=== PATIENT | female | born 2000 | race Caucasian/White ===

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

== ENCOUNTER → 2021-04-16 12:07 | Outpatient (CLI) | payer OTHER, MEDICAID, SELFPAY ==
[2021-04-16 13:44] LABS: COVID19 -Nasal RAPID Negative (Negative)
== END ==
PROVIDERS: PCP Family Medicine; Visit Provider Nurse Practitioner
DX: J02.9 Acute pharyngitis, unspecified (principal); R05 Cough; R52 Pain, unspecified; Z20.822 Contact with and (suspected) exposure to COVID-19
CPT/HCPCS: 87635

== ENCOUNTER → 2021-05-26 13:50 | Outpatient (CLI) | payer OTHER, MEDICAID, SELFPAY ==
--- NOTE | 2021-05-26 13:51 | DI.US.S_ITS ---
PROCEDURE: US OB >= 14 WEEKS FETUS INDICATIONS: DATING. ANATOMY. OUTSIDE/PRIOR DATING DATA: Last menstrual period (LMP): Unknown . LMP-based estimated date of delivery (PAM): Unknown . First dating scan (date and location): 05/26/21 . Estimated date of delivery (PAM) from first dating scan: 10/14/21 . TECHNIQUE: Real-time scanning was performed of the fetus, with image documentation and biometric measurements. Endovaginal scanning: Not performed COMPARISON: [facility], , OB >= 14 WEEKS FETUS, 09/10/2019, 8:40. FINDINGS: General: A single living intrauterine gestation is present. Presentation: Variable. Placenta: Placental position is anterior , without previa. Amniotic fluid index: 15.2 cm, normal range is 5-24 cm. heart rate: 130 beats per minute. Maternal cervical canal: 3.6 cm long. Normal lower limit is 2.5 cm. biometrics: Biparietal diameter: 4.6 cm, 20 weeks 0 days Head circumference: 0.8 cm, 19 weeks 3 days Abdominal circumference: 15.0 cm, 20 weeks 2 days Femur length: 3.2 cm, 19 weeks 6 days Estimated gestational age from initial scan: not applicable. Composite gestational age from present scan: 19 weeks 6 days Estimated weight and percentile: 325 g. Measurement variability for biometric dating: +/- 7 days from 14 weeks to 15 weeks 6 days gestation, +/- 10 days from 16 weeks to 21 weeks 6 days gestation, +/- 2 weeks from 22 weeks to 27 weeks 6 days gestation, +/- 3 weeks for 28 weeks gestation or later. weight reference: 4500 g or EFW >90/95% is considered macrosomia or large for gestational age. EFW <10% is small for gestational age. EFW 5% or less is considered intra-uterine growth restriction. Anatomic survey: Neuro: Ventricles are non-dilated at less than 10 mm. Cisterna magna is normal at 3-11 mm. Cerebellum is normal in size and morphology. Nuchal skin fold: Normal at less than 6 mm between 14-21 weeks gestational age. Face: Nose and lips, facial profile are normal. Spine: No evidence for spina bifida. Heart: 4-chambered heart is present, with normal ventricular outflow tracts. Diaphragm: Diaphragm is intact. Stomach: Left-sided stomach is present. Kidneys: No hydronephrosis. Normal is less than 5 mm in 2nd trimester, less than 7 mm in 3rd trimester. Cord: 3-vessel cord has orthotopic insertion. Bladder: Normal in size. Extremities: All 4 extremities identified. IMPRESSION: Single living intrauterine fetus in variable presentation. Normal anatomic survey Growth assessment precluded by lack of known LMP or 1st trimester dating ultrasound. As clinically warranted, a limited growth ultrasound study could be performed in 3-4 weeks for further evaluation. Dictated by: Amador Zaragoza M.D. on 05/26/2021 at 16:28 Approved by: Amador Zaragoza M.D. on 05/26/2021 at 16:31
[2021-05-26 15:22] LABS: Add Manual Diff / Slide Review NO; Basophils Absolute Auto 100 /uL (0-100); Basophils Percent Auto 0.6 % (0-2); Eosinophils Absolute Auto 200 /uL (0-450); Eosinophils Percent Auto 1.5 % (2-4); Hematocrit 37.4 % (36-46); Hemoglobin 12.9 g/dL (12.0-16.0); Lymphocytes Absolute Auto 2400 /uL (1100-4500); Lymphocytes Percent Auto 21.7 % (25-40); Mean Corpuscular HGB Conc 34.4 % (30-36); Mean Corpuscular Hemoglobin 31.9 PG (26-34); Mean Corpuscular Volume 92.7 fL (80-100); Monocytes Absolute Auto 500 /uL (0-900); Monocytes Percent Auto 4.4 % (3-14); Neutrophils Absolute Auto 8000 /uL (1500-7000); Neutrophils Percent Auto 71.8 % (50-75); Platelet Count 264 X10^3/uL (150-400); Red Blood Cell Count 4.03 X10^6/uL (4.0-5.2); Red Cell Distribution Width 13.3 % (11.6-14.8); White Blood Cell Count 11.1 X10^3/uL (4.5-11.0)
[2021-05-26 15:25] LABS: Appearance Urine UA CLEAR; Bilirubin Urine UA NEGATIVE (NEGATIVE); Color Urine UA YELLOW; Glucose Urine UA NEGATIVE (Negative); Ketones Urine UA NEGATIVE (NEGATIVE); Leukocyte Esterase Urine UA NEGATIVE (NEGATIVE); Nitrite Urine UA NEGATIVE (Negative); Occult Blood Urine UA NEGATIVE (Negative); Protein Urine UA NEGATIVE (Negative); Specific Gravity Urine UA 1.015 (1.000-1.035); Urobilinogen Urine UA 0.2 E.U./dL (0.2)
[2021-05-27 06:40] LABS: RPR Screen Non Reactive (Non Reactive)
[2021-05-27 08:10] LABS: Varicella IgG Antibody <135 index (Immune >165)
[2021-05-27 16:28] LABS: Hepatitis B Surface Antigen NEGATIVE s/c (NEGATIVE)
[2021-05-27 16:48] LABS: HIV 1 & 2 Ab/Ag 4th Gen Combo NEGATIVE (NEGATIVE); Hep C Virus Ab w/Reflex Quant NEGATIVE s/c (NEGATIVE)
[2021-06-05 13:42] LABS: Rubella Antibody IgG 12.4 IU/mL (>15)
== END ==
PROVIDERS: PCP Family Medicine; Referring Provider Obstetrics & Gynecology; Visit Provider Obstetrics & Gynecology
DX: Z34.82 Encounter for supervision of other normal pregnancy, second trimester (principal); Z3A.19 19 weeks gestation of pregnancy
CPT/HCPCS: 36415; 76811; 80055; 81003; 82105; 82677; 84702; 86336; 86787; 86803; 86850; 86900; 86901; 87086; 87389

== ENCOUNTER → 2021-05-26 16:22 | Outpatient (CLI) | payer OTHER, MEDICAID, SELFPAY ==
[2021-05-28 20:38] LABS: AFP, Serum 46.2 ng/mL (.); Calc Gestational Age Ultrasound (.); Estriol, Free 2.75 ng/mL (.); Inhibin A, Dimeric 235.65 pg/mL (.); Maternal Ethnicity Caucasian (.); Maternal Weight 134 lbs (.); Number of Fetuses No (.); OSBR Risk 1 IN 10000 (.); Results Report (.); Test Results *Screen Negative* (.); hCG, MoM 0.55 (.); hCG, Serum 14951 mIU/mL (.)
== END ==
PROVIDERS: PCP Family Medicine; Referring Provider Obstetrics & Gynecology; Visit Provider Obstetrics & Gynecology
DX: Z34.82 Encounter for supervision of other normal pregnancy, second trimester (principal); Z3A.19 19 weeks gestation of pregnancy
CPT/HCPCS: 82105; 82677; 84702; 86336

== ENCOUNTER 2021-06-30 21:24 | Emergency (ER) | payer OTHER, MEDICAID, SELFPAY ==
[2021-06-30 21:26] VITALS: BP 120/65; PULSE 87; RESP 15; TEMP 36.7; O2SAT 100
--- NOTE | 2021-06-30 23:02 | ED_ITS ---
HPI - General Adult General Chief complaint: Upper Respiratory Symptoms Stated complaint: sore throat Time Seen by Provider: 06/30/21 21:50 Source: patient Mode of arrival: Ambulatory History of Present Illness HPI narrative: Patient is a 20-year-old female. She is here for evaluation approximately 24 hours of a sore throat. She has not tried anything for symptoms prior to arrival. She was recently diagnosed with strep throat and finished a course of antibiotics. This was done several months ago at an outside facility. No rashes. No fevers. No cough. Related Data Home Medications Medication Instructions Recorded Confirmed prenat.vits,alverto,[id number]-[id number]-[id number] 1 tab PO DAILY 06/25/19 05/25/21 albuterol sulfate 90 mcg/actuation 0 INH SEE INSTRUCTIONS PRN 12/30/19 01/27/20 aerosol inhaler (Proventil HFA) Previous Rx's Medication Instructions Recorded albuterol sulfate 90 mcg/actuation 1 puff INH PRN PRN #8 gm 08/17/16 aerosol inhaler (Ventolin HFA) Allergies Allergy/AdvReac Type Severity Reaction Status Date / Time No Known Drug Allergies Allergy Verified 05/25/21 11:33 Review of Systems Constitutional Constitutional: Denies fever(s) and Denies headache(s) ENT Ears, Nose, Mouth, and Throat: Reports system reviewed and no additional complaints, except as documented and Denies headache(s) Cardiovascular Cardiovascular: Denies chest pain Respiratory Respiratory: Reports system reviewed and no additional complaints, except as documented Gastrointestinal Gastrointestinal: Reports system reviewed and no additional complaints, except as documented Integumentary/Breasts Skin/Breast: Reports system reviewed and no additional complaints, except as documented Neurologic Neurologic: Denies headache(s) Hematologic/Lymphatic On Anticoagulants: No Patient History Medical History Anxiety (~2015) Depression (~2013) Eczema (~2001) H/O being hospitalized Intrauterine in teenager (~2018) Pharyngitis examination following vaginal delivery (~2019) Surgical History (Updated 05/25/21 @ 11:51 by Kavitha Fletcher RN) History of removal of skin mole (~2011) Family History (Updated 05/25/21 @ 11:59 by Kavitha Fletcher RN) Grandmother Hypertension Grandfather Lung cancer Smoker Family/Other Breast cancer Brother OCD (obsessive compulsive disorder) Learning disability Mother Depression Father Depression Grandmother No problems noted. Grandfather No problems noted. Social History marital status: unmarried,living together number of children: 1 household members: family lives independently: Yes caregiver/support person: No housing: apartment pets and animals: Yes (Dogs and Cats : aware/safe. ) education level: high school occupational status: [facility] ([employer] current occupational exposures/hazards: No special nathalia needs: No other: Patient is planning on graduating and taking a gap year. seatbelt use: always do you feel safe at home: Yes Smoking Status: Never smoker second hand exposure: No alcohol intake: former (Rare: some on occasion before diagnosis) substance use type: marijuana (Smokes MJ for nausea: states she uses some to ease nausea symptoms : discussed/aware. ) during the past year weight has: remained stable well-balanced diet: daily or most days daily servings fruits/ve or more times/day (5-9 servings/day: lots of fruit.) caffeine: No Type(s) of exercise: walking (Dog park & lots of walks with son.) frequency: 3-4 times per week duration: 30-45 minutes/day Smoking Status: Never smoker alcohol intake frequency: holidays/special occasions only Substance Use Type: does not use Exam Initial Vital Signs Initial Vital Signs: Vital Signs Temperature 98.0 F 06/30/21 21:26 Pulse Rate 87 06/30/21 21:26 Respiratory Rate 15 06/30/21 21:26 Blood Pressure 120/65 06/30/21 21:26 Pulse Oximetry 100 06/30/21 21:26 Const General: cooperative and healthy appearing [facility] Head: normal to inspection Mouth: oral mucosae normal Teeth and gingiva: dentition normal Throat: posterior oropharynx normal Resp Effort & Inspection: normal respiratory effort Skin General: no rashes or lesions noted Neuro General: patient alert, patient awake and moves all extremities Extrem General: normal to inspection Psych Appearance: grossly normal Course Orders Ordered: Discontinued Medications Dexamethasone (Dexamethasone 4 Mg Tablet) 12 mg PO NOW ONE Stop: 06/30/21 23:04 Last Admin: 06/30/21 23:10 Dose: 12 mg Documented by: RYANIKE Vital Signs Vital signs: Vital Signs - 8 hr 06/30/21 21:26 Temperature 98.0 F Pulse Rate 87 Respiratory Rate 15 Blood Pressure 120/65 Pulse Oximetry 100 Medical Decision Making Lab Data Labs: Point of Care Testing Rapid Strep A Negative Point of care testing: Point of Care Testing Rapid Strep A Negative MDM Narrative Medical decision making narrative: Patient's rapid strep was negative. She does have a benign exam. No indication for antibiotics. Will provide 1 dose of a steroid to help with her symptoms. She was given return precautions and follow-up instructions. She expressed understanding and agreement. Discharge Plan Departure Patient Disposition: Home Clinical Impression: Pharyngitis Instructions: Sore Throat Activity Restrictions/Additional Instructions: Your rapid strep test today was negative. You were given a dose of steroids which should help with your symptoms. Continue to stay hydrated. Contact your primary doctor for a follow-up. Return to the emergency department for any new or worsening symptoms Prescriptions: No Action albuterol sulfate [Ventolin HFA] 90 MCG/PUFF HFA aerosol inhaler 1 puff INH PRN PRNQty: 8 0RF prenat.vits,alverto,erx-iqod-nknqf Tablet 1 tab PO DAILY 0RF albuterol sulfate [Proventil HFA] 90 MCG/PUFF HFA aerosol inhaler 0 INH SEE INSTRUCTIONS PRN (Reason: Shortness Of Breath Or Wheezing) 0RF Referrals: Lorie Wong DO [Primary Care Provider] -
[2021-06-30] MEDS: dexAMETHasone 4 MG TABLET 12 MG PO (23:10)
== END 2021-06-30 23:12 | disposition home or self-care (01) ==
PROVIDERS: Emergency Provider Emergency Medicine; PCP Family Medicine
DX: J02.9 Acute pharyngitis, unspecified (principal)
CPT/HCPCS: 87880; 99283

== ENCOUNTER → 2021-08-02 15:51 | Outpatient (CLI) | payer OTHER, MEDICAID, SELFPAY ==
[2021-08-02 17:06] LABS: COVID19 -Nasal RAPID Negative (Negative)
== END ==
PROVIDERS: PCP Family Medicine; Referring Provider Nurse Practitioner Family; Visit Provider Nurse Practitioner Family
DX: Z20.822 Contact with and (suspected) exposure to COVID-19 (principal)
CPT/HCPCS: 87635

== ENCOUNTER 2021-09-12 00:24 | Outpatient (CLI) | payer OTHER, MEDICAID, SELFPAY ==
[2021-09-12] MEDS: ACETAMINOPHEN 325 MG TABLET 650 MG PO (01:40)
--- NOTE | 2021-09-12 10:50 | P.TNLD_ITS ---
Visit Information Visit Information Date of evaluation: 09/12/21 Primary OB Provider: Christopher Willard On-call OB Provider: Jessica Alfredo Reason for Evaluation: Yes other Comments/Additional reasons for admission: Pelvic and back pain Vital Signs Vital Signs: blood pressure 122/65, pulse 66, temperature 97.3? [facility] Medical History Anxiety (~2015) Depression (~2013) Eczema (~2001) H/O being hospitalized Intrauterine in teenager (~2018) Pharyngitis examination following vaginal delivery (~2019) Surgical History (Updated 05/25/21 @ 11:51 by Kavitha Fletcher RN) History of removal of skin mole (~2011) Family History (Updated 05/25/21 @ 11:59 by Kavitha Fletcher RN) Grandmother Hypertension Grandfather Lung cancer Smoker Family/Other Breast cancer Brother OCD (obsessive compulsive disorder) Learning disability Mother Depression Father Depression Grandmother No problems noted. Grandfather No problems noted. Social History marital status: unmarried,living together number of children: 1 household members: family lives independently: Yes caregiver/support person: No housing: apartment pets and animals: Yes (Dogs and Cats : aware/safe. 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 seatbelt use: always do you feel safe at home: Yes Smoking Status: Never smoker second hand exposure: No alcohol intake: former (Rare: some on occasion before diagnosis) substance use type: marijuana (Smokes MJ for nausea: states she uses some to ease nausea symptoms : discussed/aware. ) during the past year weight has: remained stable well-balanced diet: daily or most days daily servings fruits/ve or more times/day (5-9 servings/day: lots of fruit.) caffeine: No Type(s) of exercise: walking (Dog park & lots of walks with son.) frequency: 3-4 times per week duration: 30-45 minutes/day Review of Systems Review of Systems Narrative: Patient got up out of a beanbag and had sudden onset of back and pelvic pain. No vaginal bleeding. Good movement. Does not think she is having contractions. No leakage of fluid. Evaluation Evaluation Baseline heart rate: 120 Variability: Moderate (11-25) monitor accelerations: Present Category of Tracing: Reactive Status: Category l Comments: Patient was some uterine irritability but no specific contractions palpable. Diagnosis, Plan/Disposition Final Diagnosis (1) 35 weeks gestation of : Status: Acute (2) Low back pain during in third trimester: Status: Acute Plan/Disposition Plan: Likely musculoskeletal pain. Patient was given Tylenol. Routine precautions reviewed. OB Disposition: home
== END 2021-09-12 01:45 | disposition home or self-care (01) ==
LOC: LABOR 01:28 → OB 09-14 12:38
PROVIDERS: PCP Family Medicine; Referring Provider Specialist; Visit Provider Specialist
DX: O26.893 Other specified pregnancy related conditions, third trimester (principal); M54.9 Dorsalgia, unspecified; R10.2 Pelvic and perineal pain; Z3A.35 35 weeks gestation of pregnancy
CPT/HCPCS: 59025; G0378; G0379

== ENCOUNTER 2021-09-21 13:41 | Outpatient (CLI) | payer OTHER, MEDICAID, SELFPAY ==
[2021-09-21 14:42] LABS: Appearance Urine UA CLEAR; Bilirubin Urine UA NEGATIVE (NEGATIVE); Color Urine UA YELLOW; Glucose Urine UA NEGATIVE (Negative); Ketones Urine UA NEGATIVE (NEGATIVE); Leukocyte Esterase Urine UA NEGATIVE (NEGATIVE); Nitrite Urine UA NEGATIVE (Negative); Occult Blood Urine UA NEGATIVE (Negative); Protein Urine UA NEGATIVE (Negative); Specific Gravity Urine UA 1.015 (1.000-1.035); Urobilinogen Urine UA 0.2 E.U./dL (0.2)
[2021-09-21 14:52] LABS: pH Urine UA 7.5 (4.5-8.0)
[2021-09-21 15:11] LABS: Bacteria Urine Occasional (0-1); Culture Indicated Urine Cult Not Indicated; RBC Urine None Seen (0-5/HPF); Squamous Epithelial Cell Urine 1-5 /HPF (0-5/HPF); WBC Urine 0-1/HPF (0-5/HPF)
== END 2021-09-21 15:14 | disposition home or self-care (01) ==
LOC: LABOR 14:13 → OB 09-22 10:37
PROVIDERS: PCP Family Medicine; Referring Provider Obstetrics & Gynecology; Visit Provider Obstetrics & Gynecology
DX: Z03.71 Encounter for suspected problem with amniotic cavity and membrane ruled out (principal); O26.893 Other specified pregnancy related conditions, third trimester; R10.9 Unspecified abdominal pain; M25.559 Pain in unspecified hip; Z3A.36 36 weeks gestation of pregnancy
CPT/HCPCS: 59025; 81001; 84112; G0378; G0379

== ENCOUNTER → 2021-09-24 08:18 | Outpatient (CLI) | payer OTHER, MEDICAID, SELFPAY ==
[2021-09-25 13:34] LABS: Strep Grp B PCR NEG for Grp B Strep
== END ==
PROVIDERS: PCP Family Medicine; Visit Provider Obstetrics & Gynecology
DX: Z36.85 Encounter for antenatal screening for Streptococcus B (principal); Z3A.36 36 weeks gestation of pregnancy
CPT/HCPCS: 87653

== ENCOUNTER 2021-10-22 15:29 | Outpatient (CLI) | payer OTHER, MEDICAID, SELFPAY | END 2021-10-22 16:15 | disposition home or self-care (01) | LOC: LABOR 15:57 → OB 10-26 08:26 | PROVIDERS: PCP Family Medicine; Referring Provider Obstetrics & Gynecology; Visit Provider Obstetrics & Gynecology | DX: O48.0 Post-term pregnancy (principal); O99.323 Drug use complicating pregnancy, third trimester; F12.90 Cannabis use, unspecified, uncomplicated; Z3A.41 41 weeks gestation of pregnancy | CPT/HCPCS: 59025; G0378; G0379 ==

== ENCOUNTER 2021-10-26 19:20 | Inpatient (IN) | payer OTHER, MEDICAID, SELFPAY ==
[2021-10-26 21:00] VITALS: BP 120/75
--- NOTE | 2021-10-26 21:06 | PM.OBHP.1 ---
OB HPI Date/Time Date of admission: 10/26/21 Date Patient Seen: 10/27/21 Time Patient Seen: 05:20 History of Present Condition Chief complaint: observation of labor : 2 Para: 1 Estimated Date of Delivery: 10/14/21 Estimated Gestational Age (weeks): 41+6 Narrative: Olena Ortiz is a 20 year old admitted at 41+5 for induction due to post-dates. Patient's course has been largely unremarkable aside from some compliance issues in the second trimester. GBS negative. Indications Indication for induction OB: post dates History of Present care: good care Dating criteria: based on 1st trimester US only Ultrasounds: normal 1st trimester US and normal mid trimester US Obstetrical complications: none Medical complications: none Preadmission Labs Blood type: A (+) positive -: Antibody screen: negative, GBS status: negative, HBsAG: negative and RPR/VDLR: negative -: Chlamydia screen: not detected and Gonorrhea screen: not detected -: Rubella: not immune and Varicella: immune HCT: 31.3 HCAB: negative Quad screen: Normal Narrative: Patient did not get her 1 hr. GDM screen performed Prior (ies) History: x 1 Evaluation Evaluation Baseline heart rate: 125 Variability: Moderate (11-25) monitor accelerations: Present Monitor Decelerations: Absent Contraction Frequency (minutes): 3 Uterine Contraction Intensity: Strong/Firm Category of Tracing: Reactive Status: Category l Dilation (cm): 8 Effacement (%): 100 Dilation: >/=5 cm Effacement: >/=80% station: +1 Position of cervix: anterior Consistency: soft Garces score: 13 Comments: Gross ROM @ 0615 [facility] Medical History Anxiety (~2015) Depression (~2013) Eczema (~2001) H/O being hospitalized Intrauterine in teenager (~2018) Pharyngitis examination following vaginal delivery (~2019) Surgical History (Updated 05/25/21 @ 11:51 by Kavitha Fletcher RN) History of removal of skin mole (~2011) Family History (Updated 05/25/21 @ 11:59 by Kavitha Fletcher RN) Grandmother Hypertension Grandfather Lung cancer Smoker Family/Other Breast cancer Brother OCD (obsessive compulsive disorder) Learning disability Mother Depression Father Depression Grandmother No problems noted. Grandfather No problems noted. Social History marital status: unmarried,living together number of children: 1 household members: family lives independently: Yes caregiver/support person: No housing: apartment pets and animals: Yes (Dogs and Cats : aware/safe. 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 seatbelt use: always do you feel safe at home: Yes Smoking Status: Never smoker second hand exposure: No alcohol intake: former (Rare: some on occasion before diagnosis) substance use type: marijuana (Smokes MJ for nausea: states she uses some to ease nausea symptoms : discussed/aware. ) during the past year weight has: remained stable well-balanced diet: daily or most days daily servings fruits/ve or more times/day (5-9 servings/day: lots of fruit.) caffeine: No Type(s) of exercise: walking (Dog park & lots of walks with son.) frequency: 3-4 times per week duration: 30-45 minutes/day Meds Home Medications and Allergies Home Medications Medication Instructions Recorded Confirmed Type prenat.vits,alverto,cgz-clho-fqimv 1 tab PO DAILY 06/25/19 10/26/21 History Allergies Allergy/AdvReac Type Severity Reaction Status Date / Time No Known Drug Allergies Allergy Verified 10/15/21 15:17 OB Exam [facility] Head: normal to inspection Mouth: oral mucosae normal Eyes General: appearance normal, both eyes and all related structures Resp Effort & Inspection: normal respiratory effort and able to speak in complete sentences Cardio Rate: regular rate Rhythm: regular rhythm Heart Sounds: S1 normal and S2 normal GI Inspection: normal to inspection Palpation: Yes soft and Yes no hepatosplenomegaly Uterus Location (Fundal Height): 35 Presentation: vertex Estimated Weight (lbs): 7 Amniotic Fluid: clear Objective Labs Result Diagrams: 10/26/21 20:30 Assessment and Plan Assessment and Plan Assessment and Plan narrative: ASSESSMENT 1. Intrauterine gestation, hauser, vertex 41+6 weeks EGA 2. Post-dates 3. GBS negative status PLAN 1. Admit for ripening/induction 2. See orders 3. OK for BRUCE 4. Anticipate Time Spent with Patient Total time spent with greater than 50% in coordination of care (as documented) at patient's floor/unit and/or counseling patient:: 15-24 minutes
[2021-10-26 21:23] LABS: Add Manual Diff / Slide Review NO; Basophils Absolute Auto 100 /uL (0-100); Basophils Percent Auto 0.8 % (0-2); Eosinophils Absolute Auto 100 /uL (0-450); Eosinophils Percent Auto 1.1 % (2-4); Hematocrit 31.3 % (36-46); Hemoglobin 10.5 g/dL (12.0-16.0); Lymphocytes Absolute Auto 2300 /uL (1100-4500); Lymphocytes Percent Auto 25.7 % (25-40); Mean Corpuscular HGB Conc 33.7 % (30-36); Mean Corpuscular Hemoglobin 27.2 PG (26-34); Mean Corpuscular Volume 80.7 fL (80-100); Monocytes Absolute Auto 500 /uL (0-900); Monocytes Percent Auto 5.9 % (3-14); Neutrophils Absolute Auto 6000 /uL (1500-7000); Neutrophils Percent Auto 66.5 % (50-75); Platelet Count 296 X10^3/uL (150-400); Red Blood Cell Count 3.88 X10^6/uL (4.0-5.2); Red Cell Distribution Width 15.9 % (11.6-14.8)
[2021-10-26 21:31] LABS: COVID19 -Nasal RAPID Negative (Negative)
[2021-10-26] MEDS: miSOPROStoL 25 MCG TABLET 50 MCG PO (21:36)
[2021-10-26] MEDS: LACTATED RINGERS 1,000 ML 100 ML IV (21:37)
[2021-10-26] MEDS: CALCIUM CARBONATE 500 MG TAB 1000 MG PO (23:51)
[2021-10-27] MEDS: LACTATED RINGERS 1,000 ML 100 ML IV (05:14)
--- NOTE | 2021-10-27 05:28 | PM.OBHP.1 ---
OB HPI Date/Time Date of admission: 10/26/21 Date Patient Seen: 10/27/21 Time Patient Seen: 05:20 History of Present Condition Chief complaint: observation of labor Narrative: Olena Ortiz is a 20 year old female [facility] Medical History Anxiety (~2015) Depression (~2013) Eczema (~2001) H/O being hospitalized Intrauterine in teenager (~2018) Pharyngitis examination following vaginal delivery (~2019) Surgical History (Updated 05/25/21 @ 11:51 by Kavitha Fletcher RN) History of removal of skin mole (~2011) Family History (Updated 05/25/21 @ 11:59 by Kavitha Fletcher RN) Grandmother Hypertension Grandfather Lung cancer Smoker Family/Other Breast cancer Brother OCD (obsessive compulsive disorder) Learning disability Mother Depression Father Depression Grandmother No problems noted. Grandfather No problems noted. Social History marital status: unmarried,living together number of children: 1 household members: family lives independently: Yes caregiver/support person: No housing: apartment pets and animals: Yes (Dogs and Cats : aware/safe. ) education level: high school occupational status: unemployed ([employer].) current occupational exposures/hazards: No special nathalia needs: No other: Patient is planning on graduating and taking a gap year. seatbelt use: always do you feel safe at home: Yes Smoking Status: Never smoker second hand exposure: No alcohol intake: former (Rare: some on occasion before diagnosis) substance use type: marijuana (Smokes MJ for nausea: states she uses some to ease nausea symptoms : discussed/aware. ) during the past year weight has: remained stable well-balanced diet: daily or most days daily servings fruits/ve or more times/day (5-9 servings/day: lots of fruit.) caffeine: No Type(s) of exercise: walking (Dog park & lots of walks with son.) frequency: 3-4 times per week duration: 30-45 minutes/day Meds Home Medications and Allergies Home Medications Medication Instructions Recorded Confirmed Type prenat.vits,alverto,txw-hgee-slrcd 1 tab PO DAILY 06/25/19 10/26/21 History Allergies Allergy/AdvReac Type Severity Reaction Status Date / Time No Known Drug Allergies Allergy Verified 10/15/21 15:17 Objective Labs Result Diagrams: 10/26/21 20:30 Labs: Laboratory Results - last 24 hr 10/26/21 10/26/21 10/26/21 20:15 20:30 20:30 WBC 9.0 RBC 3.88 L Hgb 10.5 L Hct 31.3 L MCV 80.7 MCH 27.2 MCHC 33.7 RDW 15.9 H Plt Count 296 Neut % (Auto) 66.5 Lymph % (Auto) 25.7 [place] % (Auto) 5.9 Eos % (Auto) 1.1 L Baso % (Auto) 0.8 Neut # (Auto) 6000 Lymph # (Auto) 2300 [place] # (Auto) 500 Eos # (Auto) 100 Baso # (Auto) 100 SARS-CoV-2 (PCR) Negative Blood Type A Positive Antibody Screen Negative
[2021-10-27] MEDS: ONDANSETRON 8 MG in SODIUM CHLORIDE 0.9% 50 ML 216 ML IV (06:47)
--- NOTE | 2021-10-27 07:12 | P.PCNOB_ITS ---
Labor & Delivery Delivery date: 10/27/21 Intrapartal Events: None Cervical ripening method: per misoprostal protocol Delivery monitor: external uterine and internal FHT Route of delivery: Episiotomy description: None L&D Laceration Description: Periurethral - 1st Degree Estimated blood loss (mL): 150 Complications: None Narrative: Following a brief 2nd stage, the patient delivered spontaneously over an intact perineum a viable male with Apgars of 8/9 and a weight of 4781 g (1 0 lb 5.6 oz.). No shoulder dystocia was encountered and immediate skin to skin contact initiated. Delayed cord clamping was performed and after approximately 90 seconds, the umbilical cord was doubly clamped and cut. No cord entanglement was noted. Cord blood sample was then obtained for routine testing. Placenta was removed with gentle cord traction and suprapubic countertraction. Placenta was seen to be intact and had 3 vessels with a central insertion. Intravenous Pitocin administered and bleeding following delivery was minimal. Inspection of the perineum revealed a superficial first-degree perineal laceration which did not require repair. At the completion of the delivery, both mother and infant were doing well. No complications were experienced. [place] [facility] 1: Infant gender: Male Presentation: vertex Position: Right Occiput Anterior Placenta delivery description: Spontaneous Cord Vessel Description: 3 Vessels, Nuchal Cord and Tight score (1 min): 8 score (5 min): 9 weight: 10 lb 8.645 oz Plan for aftercare: Routine care
[2021-10-27] MEDS: PRENATAL VIT,CALC/IRON/FOLIC 1 TABLET 1 TAB PO (08:50)
[2021-10-27] MEDS: DOCUSATE 100 MG CAPSULE PO (08:51)
[2021-10-27] MEDS: IBUPROFEN 600 MG TABLET PO ×3 (08:51→22:13)
[2021-10-27] MEDS: ACETAMINOPHEN 325 MG TABLET 650 MG PO ×2 (14:02→22:13)
[2021-10-28] MEDS: IBUPROFEN 600 MG TABLET PO ×2 (04:20→11:05)
[2021-10-28] MEDS: ACETAMINOPHEN 325 MG TABLET 650 MG PO ×2 (04:21→11:03)
[2021-10-28 08:02] LABS: Hematocrit 27.5 % (36-46); Hemoglobin 9.3 g/dL (12.0-16.0)
--- NOTE | 2021-10-28 08:02 | PM.OBDS.1 ---
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 Patient's course has been largely unremarkable aside from some compliance issues in the second trimester. GBS negative. Following admission the patient underwent cervical ripening with oral Cytotec and proceeded into spontaneous labor delivering a viable male with Apgars of 8 and 9, weight 4781 g (10 lb 5.6 oz) on the afternoon of 10/27/2021. Patient sustained a superficial first-degree laceration but the delivery itself was uncomplicated both mother and baby did well following delivery. Following delivery, the patient has experienced a prompt return of bowel and bladder function, she is ambulating independently, tolerating regular diet, and her pain is well controlled with oral pain medications. She will be discharged at this time to home in an afebrile normotensive condition after being counseled regarding precautionary symptoms, limitations of activity, medications, and plans for follow-up. Medications at discharge will include ibuprofen 600 mg p.o. every 6 hours and Colace 100 mg p.o. b.i.d. times 30 days. Follow-up will be in 6 weeks or as needed. Peripartum Data Infant Delivery Method: Natural Vaginal Laceration Description: Periurethral - 1st Degree Episiotomy description: None Procedures: Vaginal OB delivery Continuous lumbar epidural placement complications: none [place] 1: Gender: Male Disposition of : home Status at Discharge Cognitive/behavioral status at discharge: oriented Functional status at discharge: independent ambulation Overall status at discharge: patient is progressing back to baseline Time Spent with Patient Time attestation: Total time spent providing and/or coordinating discharge services: Time spent: Less than 30 minutes Objective Labs Result Diagrams: 10/28/21 07:40 Exam Const General: cooperative and comfortable Nutritional Appearance: average body habitus Orientation: alert and oriented x3 HENMT Head: normal to inspection, atraumatic and abrasion Ears: hearing grossly normal bilaterally Face and sinus: face symmetric Eyes General: appearance normal, both eyes and all related structures Conjunctivae: conjunctivae normal Sclera: sclerae normal EOM: EOM intact bilaterally Neck Neck: normal visual inspection Resp Effort & Inspection: normal respiratory effort and able to speak in complete sentences Auscultation: clear to auscultation bilaterally Cardio Rate: regular rate Rhythm: regular rhythm Heart Sounds: S1 normal, S2 normal and no murmurs GI Inspection: normal to inspection Palpation: soft and no hepatosplenomegaly External Female Exam: other (Minimal swelling/bruising, lochia light) Extrem General: no calf tenderness Psych Appearance: grossly normal Mental Status: mental status grossly normal Speech and Movement: speech and movement normal Mood: congruent mood Affect: normal affect Attitude: cooperative Thought Process: normal Thought Content: normal Judgment: judgment good Discharge Plan Discharge Plan Patient Disposition: Home Provider Discharge Comment: Please review the written information provided when you were discharged from the hospital. Your follow-up appointment with me will be in 6 weeks and I look forward to seeing you then. If in the meanwhile however you have any issues, concerns, or problems, please contact me either through the office telephone number or via the patient portal. Discharge orders & Medications Prescriptions: New docusate sodium 100 mg Capsule 100 mg PO BID Qty: 60 0RF ibuprofen 600 mg Tablet 600 mg PO Q6HR PRN (Reason: Pain, Mild (1-3)) Qty: 60 1RF Continued prenat.vits,alverto,fax-wvcj-qsaoc Tablet 1 tab PO DAILY 0RF Follow up/Referrals: Lorie Wong DO [Primary Care Provider] - (Please follow up with Dr. Willard on MondayDecember 08 at 3:30 with a 3:15 check-in time. If you have any questions/concerns or need to reschedule please call .) Discharge Health Status Multidrug resistant organism: No MDRO Diet/Activity/Treatments Diet: Diet as Tolerated Activity: As tolerated Skin/Wound/Dressing Care Report to your healthcare provider any signs of infection, such as:: chills, fever, increased pain, unusual drainage and unusual redness Dressing: N/A Visit Report/Discharge Packet Instructions: DI for Labor and Delivery, Vaginal Stand Alone Forms: Discharge: Care Discharge Data Primary Care Provider: Lorie Wong
[2021-10-28] MEDS: PRENATAL VIT,CALC/IRON/FOLIC 1 TABLET 1 TAB PO (09:04)
[2021-10-28] MEDS: DOCUSATE 100 MG CAPSULE PO (09:05)
[2021-10-28 11:03] VITALS: TEMP 36.9
[2021-10-28 11:05] VITALS: TEMP 36.9
[2021-10-28 12:27] VITALS: BP 126/78; PULSE 72; RESP 16; TEMP 36.9
== END 2021-10-28 14:00 | disposition home or self-care (01) | DRG 560 ==
PROVIDERS: Admitting Provider Obstetrics & Gynecology; PCP Family Medicine; Referring Provider Obstetrics & Gynecology; Visit Provider Obstetrics & Gynecology
DX: O48.0 Post-term pregnancy (principal); Z37.0 Single live birth; Z3A.41 41 weeks gestation of pregnancy; Z20.822 Contact with and (suspected) exposure to COVID-19; O69.81X0 Labor and delivery complicated by cord around neck, without compression, not applicable or unspecified
CPT/HCPCS: 01967; 36415; 59050; 59200; 59409; 85014; 85018; 85025; 86850; 86900; 86901; 87635; C9803; G0379; J2405

== ENCOUNTER 2022-11-24 20:20 | Emergency (ER) | payer OTHER, MEDICAID, SELFPAY ==
[2022-11-24 20:33] VITALS: BP 133/74; PULSE 74; RESP 18; TEMP 36.8; O2SAT 98; BMI 21.1
[2022-11-24 21:19] LABS: Influenza A - CEPHEID Flu A NEGATIVE (NEGATIVE); Influenza B - CEPHEID Flu B NEGATIVE (NEGATIVE); Respiratory Syncytial Virus Negative (Negative)
[2022-11-24 21:20] LABS: COVID-19 CEPHEID 4-PLEX PCR Negative (Negative)
[2022-11-24 21:32] VITALS: BP 119/63; PULSE 90; RESP 20; O2SAT 99
[2022-11-24 23:25] VITALS: BP 118/64; PULSE 89; RESP 18; O2SAT 99
--- NOTE | 2022-11-25 02:39 | ED_ITS ---
HPI - URI/Sore Throat General Chief Complaint: Upper Respiratory Symptoms Stated Complaint: Sick t-7, Worsening Time Seen by Provider: 11/25/22 02:29 Source: patient Mode of arrival: Ambulatory History of Present Illness HPI Narrative: This is a 22-year-old female no reported medical issues, patient states she is had about a week of some nasal congestion and cough had increasing sore throat she is had big lump on the left side of her neck. She states she is been a little bit hoarse. She states no fevers but she is felt warm. She states she has had some congestion. Slight hoarseness. But no muffled voice. She states she can eat and drink without issue. She states her eyes felt a little bit irritated but she has not had any drainage or color changes. She denies chest pain or shortness of breath, no nausea or vomiting. She had some diarrhea earlier today. No dysuria urgency or frequency. No rash or skin changes. Patient states when she was younger her eyes swelled shut from being sick and she was told that she should have come in for an IV fluids. Patient states she is had a lot of water today and has been eating solids. She has not had anything for pain. She has 2 small children at home that were ill this week but she states she had symptoms even before they became sick. She denies any daily prescriptions. She denies any surgeries. No drug allergies. Denies tobacco, occasional alcohol, no illicit. Related Data Home Medications Medication Instructions Recorded Confirmed prenat.vits,alverto,[id number] 1 tab PO DAILY 06/25/19 05/08/22 Previous Rx's Medication Instructions Recorded docusate sodium 100 mg capsule 100 mg PO BID #60 caps 10/28/21 ibuprofen 600 mg tablet 600 mg PO Q6HR PRN Pain, Mild 10/28/21 (1-3) #60 tabs cyclobenzaprine 5 mg tablet 5 mg PO TID PRN muscle spasm #14 05/08/22 tabs Allergies Allergy/AdvReac Type Severity Reaction Status Date / Time No Known Drug Allergies Allergy Verified 05/08/22 14:34 Review of Systems Review of Systems ROS Unobtainable: All systems reviewed & are unremarkable except as noted in HPI and below Patient History Medical History Anxiety (~2015) Depression (~2013) Eczema (~2001) H/O being hospitalized Intrauterine in teenager (~2018) Pharyngitis examination following vaginal delivery (~2019) Surgical History History of removal of skin mole (~2011) Family History Grandmother Hypertension Grandfather Lung cancer Smoker Family/Other Breast cancer Brother OCD (obsessive compulsive disorder) Learning disability Mother Depression Father Depression Grandmother No problems noted. Grandfather No problems noted. Social History marital status: unmarried,living together number of children: 1 household members: family lives independently: Yes caregiver/support person: No housing: apartment pets and animals: Yes (Dogs and Cats : aware/safe. ) education level: high school occupational status: unemployed ([employer] current occupational exposures/hazards: No special nathalia needs: No other: Patient is planning on graduating and taking a gap year. seatbelt use: always do you feel safe at home: Yes Smoking Status: Never smoker second hand exposure: No alcohol intake: former (Rare: some on occasion before diagnosis) substance use type: marijuana (Smokes MJ for nausea: states she uses some to ease nausea symptoms : discussed/aware. ) during the past year weight has: remained stable well-balanced diet: daily or most days daily servings fruits/ve or more times/day (5-9 servings/day: lots of fruit.) caffeine: No Type(s) of exercise: walking (Dog park & lots of walks with son.) frequency: 3-4 times per week duration: 30-45 minutes/day Smoking Status: Never smoker alcohol intake frequency: holidays/special occasions only Substance Use Type: does not use Exam Narrative Exam Narrative: GEN: well nourished, well appearing female, alert and oriented x 3, patient appears to be in mild distress. HEENT: Atraumatic, pupils are equal round reactive to light, extraocular movements are intact, nares are clear, TMs are clear with no fluid, there is no conjunctival pallor. Conjunctiva noninjected. Throat is erythematous without any exudates, mild bilateral tonsillar enlargement, no uvular deviation, patient is slightly hoarse, no muffled voice. No difficulty with swallowing secretions. Patient is lying flat in bed. Patient has some mild anterior chain cervical lymphadenopathy bilaterally. HEART: Regular rate and rhythm without murmur, clicks, rubs. LUNGS:Lungs clear to auscultation, no wheezes, rales, crackles, chest moves symmetrically ABD:bowel sounds normal, soft, non-tender, no guarding, rebound, rigidity, no masses noted, no hepatosplenomegaly :No CVA tenderness MSCL: Non-tender, no muscle atrophy, muscles strength 5/5 upper and lower extremities, full range of motion, normal gait NEURO:CN 2-12 intact, sensation normal SKIN: No rash, erythema or other skin changes Initial Vital Signs Initial Vital Signs: Vital Signs Temperature 98.3 F 11/24/22 20:33 Pulse Rate 74 11/24/22 20:33 Respiratory Rate 18 11/24/22 20:33 Blood Pressure 133/74 11/24/22 20:33 Pulse Oximetry 98 11/24/22 20:33 Oxygen Delivery Method Room Air 11/24/22 20:33 Course Orders Ordered: ED Orders 11/24/22 20:35 Covid-19 + FLU A/B + RSV - PCR Stat 11/25/22 03:00 Strep Grp A by PCR Rapid Stat Discontinued Medications Dexamethasone (Dexamethasone 10 Mg/Ml Vial) 10 mg PO NOW ONE Stop: 11/25/22 03:43 Last Admin: 11/25/22 03:47 Dose: 10 mg Documented By: HNG Vital Signs Vital signs: Vital Signs - 8 hr 11/24/22 20:33 11/24/22 21:32 11/24/22 23:25 Temperature 98.3 F Pulse Rate 74 90 89 Respiratory Rate 18 20 18 Blood Pressure 133/74 119/63 118/64 Pulse Oximetry 98 99 99 Oxygen Delivery Method Room Air Room Air Room Air 11/25/22 03:45 Temperature Pulse Rate 77 Respiratory Rate 16 Blood Pressure 135/66 Pulse Oximetry 97 Oxygen Delivery Method Room Air MDM - URI/Sore Throat Lab Data Labs: Lab Results 11/24/22 11/25/22 Range/Units 20:35 03:00 SARS-CoV-2 (PCR) Negative (Negative) Influenza A (RT-PCR) Flu a negative (NEGATIVE) Influenza B (RT-PCR) Flu b negative (NEGATIVE) RSV (PCR) Negative (Negative) Group A Strep (PCR) Negative (Negative) Point of Care Testing Test Results Negative Urine Dip Bedside Urine Glucose Negative Bedside Urine Bilirubin - Negative Bedside Urine Ketone - Negative Urine Specific [place] 1.020 Bedside Urine Occult Blood - Negative Bedside Urine pH 6 Bedside Urine Protein - Negative Bedside Urine Urobilinogen +/- 1mg Bedside Urine Nitrite - Negative Bedside Urine Leukocytes - Negative Esterase MDM Narrative Medical decision making narrative: This is a 22-year-old female comes in with upper respiratory symptoms consistent with pharyngitis she has had some nasal congestion she is had sore throat she has some lymphadenopathy right greater than left but bilaterally. Afebrile with sore throat and hoarseness, no signs or changes consistent with peritonsillar abscess or other occult infection. Patient is tolerating secretions she is been eating and drinking without issue. Rapid strep was negative. Patient was given dose of dexamethasone, recommended to continue with Tylenol/ibuprofen continue to hydrate with return precautions. Discharge Plan Departure Patient Disposition: Home Clinical Impression: Pharyngitis Instructions: DI for Pharyngitis/Tonsillopharyngitis -- Adult Activity Restrictions/Additional Instructions: Follow-up for recheck if your symptoms are rapidly worsening. Your strep swab today was negative. You can take Tylenol up to a 1000 mg every 6 hours and/or ibuprofen up to 600 mg every 6 hours as needed. Continue to hydrate orally. Some individuals signed gargling with warm salt water helpful for symptoms. Please return for rapidly worsening symptoms, muffled voice, inability to swal low liquids, saliva or secretions, vomiting, persistent fevers, new chest pain or shortness of breath or other new or concerning symptoms Prescriptions: No Action cyclobenzaprine 5 mg tablet 5 mg PO TID PRN (Reason: muscle spasm) Qty: 14 0RF prenat.vits,alverto,[id number] Tablet 1 tab PO DAILY docusate sodium 100 mg Capsule 100 mg PO BID Qty: 60 0RF ibuprofen 600 mg Tablet 600 mg PO Q6HR PRN (Reason: Pain, Mild (1-3)) Qty: 60 1RF Referrals: Lorie Wong DO [Primary Care Provider] - Stand Alone Forms: Patient Portal/API
[2022-11-25 03:24] LABS: Strep Grp A by PCR Rapid Negative (Negative)
[2022-11-25 03:45] VITALS: BP 135/66; PULSE 77; RESP 16; O2SAT 97
[2022-11-25] MEDS: DEXAMETHASONE 10 MG/ML VIAL PO (03:47)
== END 2022-11-25 03:52 | disposition home or self-care (01) ==
PROVIDERS: Emergency Provider Emergency Medicine; PCP Family Medicine
DX: J02.9 Acute pharyngitis, unspecified (principal); Z20.822 Contact with and (suspected) exposure to COVID-19
CPT/HCPCS: 0241U; 81003; 81025; 87651; 99283; J1100

== ENCOUNTER 2023-02-25 15:50 | Emergency (ER) | payer SELFPAY ==
[2023-02-25 16:01] VITALS: BP 120/67; PULSE 94; RESP 18; TEMP 37; O2SAT 99; BMI 22.4
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
[2023-02-25] MEDS: KETOROLAC 30 MG/ML VIAL IM (16:53)
[2023-02-25 17:00] VITALS: PULSE 78; RESP 18; O2SAT 99
== END 2023-02-25 17:05 | disposition home or self-care (01) ==
PROVIDERS: Emergency Provider Emergency Medicine
DX: S39.012A Strain of muscle, fascia and tendon of lower back, initial encounter (principal)
CPT/HCPCS: 96372; 99283; J1885

== ENCOUNTER 2023-09-01 18:58 | Emergency (ER) | payer SELFPAY ==
[2023-09-01 19:01] VITALS: BP 119/73; PULSE 89; RESP 16; TEMP 37.1; O2SAT 98; BMI 26.6
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
== END 2023-09-01 19:52 | disposition home or self-care (01) ==
PROVIDERS: Emergency Provider Emergency Medicine
DX: S06.0X0A Concussion without loss of consciousness, initial encounter (principal); W22.8XXA Striking against or struck by other objects, initial encounter
CPT/HCPCS: 99281

== ENCOUNTER 2023-11-07 18:49 | Emergency (ER) | payer OTHER, SELFPAY ==
[2023-11-07 18:57] VITALS: BP 121/56; PULSE 86; RESP 18; TEMP 36.4; O2SAT 97; BMI 25.0
--- NOTE | 2023-11-07 19:59 | ED.WOUNDLAC ---
HPI - Wound/Laceration General Chief Complaint: Wound/Laceration Stated Complaint: fell down stairs, landed on shard of glass Time Seen by Provider: 11/07/23 19:53 History of Present Illness HPI narrative: 22-year-old female presents for accidental laceration to back of right thigh. Patient slipped down some stairs and cut herself on a shard of glass. Last tetanus at least 10 years ago Related Data Home Medications Medication Instructions Recorded Confirmed prenat.vits,alverto,[id number] 1 tab PO DAILY 06/25/19 05/08/22 Previous Rx's Medication Instructions Recorded docusate sodium 100 mg capsule 100 mg PO BID #60 caps 10/28/21 ibuprofen 600 mg tablet 600 mg PO Q6HR PRN Pain, Mild 10/28/21 (1-3) #60 tabs cyclobenzaprine 5 mg tablet 5 mg PO TID PRN muscle spasm #14 05/08/22 tabs cyclobenzaprine 10 mg tablet 10 mg PO TID PRN muscle spasm #14 02/25/23 tabs ondansetron 4 mg disintegrating 4 mg PO Q6H PRN nausea and 09/01/23 tablet vomiting #10 tabs Allergies Allergy/AdvReac Type Severity Reaction Status Date / Time No Known Drug Allergies Allergy Verified 05/08/22 14:34 Review of Systems Review of Systems Narrative: see HPI Patient History Medical History Anxiety (~2015) examination following vaginal delivery (~2019) Pharyngitis Intrauterine in teenager (~2018) Depression (~2013) Eczema (~2001) H/O being hospitalized Surgical History History of removal of skin mole (~2011) Family History Grandmother Hypertension Grandfather Lung cancer Smoker Family/Other Breast cancer Brother OCD (obsessive compulsive disorder) Learning disability Mother Depression Father Depression Grandmother No problems noted. Grandfather No problems noted. Social History marital status: unmarried,living together number of children: 1 household members: family lives independently: Yes caregiver/support person: No housing: apartment pets and animals: Yes (Dogs and Cats : aware/safe. 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 seatbelt use: always do you feel safe at home: Yes Smoking Status: Current some day smoker second hand exposure: No alcohol intake: former (Rare: some on occasion before diagnosis) substance use type: marijuana (Smokes MJ for nausea: states she uses some to ease nausea symptoms : discussed/aware. ) during the past year weight has: remained stable well-balanced diet: daily or most days daily servings fruits/ve or more times/day (5-9 servings/day: lots of fruit.) caffeine: No Type(s) of exercise: walking (Dog park & lots of walks with son.) frequency: 3-4 times per week duration: 30-45 minutes/day Smoking Status: Current some day smoker tobacco type: vaping alcohol intake frequency: a few times a week Alcohol type: hard liquor Substance Use Type: marijuana Exam Initial Vital Signs Initial Vital Signs: Vital Signs Temperature 97.6 F 11/07/23 18:57 Pulse Rate 86 11/07/23 18:57 Respiratory Rate 18 11/07/23 18:57 Blood Pressure 121/56 L 11/07/23 18:57 Pulse Oximetry 97 11/07/23 18:57 Oxygen Delivery Method Room Air 11/07/23 18:57 Const: Awake, alert, no acute distress, nontoxic appearing Skin: 2cm laceration mid posterior R thigh, no active bleeding, no foreign body Neuro: AO x3, CN II-XII grossly intact, moves all extremities Procedures Laceration Repair Laceration 1: Site: lower extremity Side (If applicable): right Size (cm): 2 Description: linear Depth: simple, single layer Local Anesthetic: lidocaine 1% Amount of anesthesia used (mL): 3 Pre-repair: wound explored and irrigated extensively Skin layer closed with: nylon Skin layer suture size: 3-0 Number of sutures: 3 Technique: simple, interrupted Course Orders Ordered: Discontinued Medications Diphtheria/Tetanus/Acell Pertussis (Tet,Diph,Pertuss(Acell),Vac/Pf 0.5 Ml Syringe) 0.5 ml IM .ONCE ONE Stop: 11/07/23 20:00 Last Admin: 11/07/23 20:27 Dose: 0.5 ml Documented By: EARL Vital Signs Vital signs: Vital Signs - 8 hr 11/07/23 18:57 Temperature 97.6 F Pulse Rate 86 Respiratory Rate 18 Blood Pressure 121/56 L Pulse Oximetry 97 Oxygen Delivery Method Room Air MDM - Wound/Laceration MDM Narrative Medical decision making narrative: Slip and fall with accidental laceration to back of leg. Wound cleaned, explored, no foreign bodies found. Tetanus shot updated. Repaired per procedure note. Wound care instructions discussed at bedside. L&I form filled out Discharge Plan Departure Patient Disposition: Home Clinical Impression: Leg laceration Qualifiers: Encounter type: initial encounter Laterality: right Qualified Code(s): S81.811A - Laceration without foreign body, right lower leg, initial encounter Instructions: DI for Laceration Repair Activity Restrictions/Additional Instructions: sutures to be removed in 7-10 days Prescriptions: No Action cyclobenzaprine 5 mg tablet 5 mg PO TID PRN (Reason: muscle spasm) Qty: 14 0RF prenat.vits,alverto,[id number] Tablet 1 tab PO DAILY cyclobenzaprine 10 mg tablet 10 mg PO TID PRN (Reason: muscle spasm) Qty: 14 0RF docusate sodium 100 mg Capsule 100 mg PO BID Qty: 60 0RF ibuprofen 600 mg Tablet 600 mg PO Q6HR PRN (Reason: Pain, Mild (1-3)) Qty: 60 1RF ondansetron 4 mg tablet,disintegrating 4 mg PO Q6H PRN (Reason: nausea and vomiting) Qty: 10 0RF Referrals: Miscellaneous,Doctor, MD [Primary Care Provider] - Stand Alone Forms: Patient Portal/API
[2023-11-07] MEDS: TET,DIPH,PERTUSS(ACELL),VAC/PF 0.5 ML SYRINGE IM (20:27)
== END 2023-11-07 20:39 | disposition home or self-care (01) ==
PROVIDERS: Emergency Provider Emergency Medicine
DX: S81.811A Laceration without foreign body, right lower leg, initial encounter (principal); W25.XXXA Contact with sharp glass, initial encounter; Z23 Encounter for immunization
CPT/HCPCS: 12001; 90471; 99283; 90715

== ENCOUNTER 2023-11-14 09:31 | Emergency (ER) | payer OTHER, SELFPAY ==
[2023-11-14 09:43] VITALS: PULSE 80; RESP 17; TEMP 36.4; O2SAT 98; BMI 26.6
[2023-11-14 11:24] VITALS: BP 115/65; PULSE 64; RESP 16; TEMP 36.4; O2SAT 100
--- NOTE | 2023-11-14 11:28 | ED.RECABL ---
HPI - Recheck/Abnormal Lab/Rx <Cal Skinner PA-C - Last Filed: 11/14/23 11:32> General Chief Complaint: Recheck/Abnormal Lab/Rx Stated Complaint: get stitches removed Time Seen by Provider: 11/14/23 11:11 Source: patient Mode of arrival: Family Vehicle History of Present Illness HPI narrative: 22-year-old female presents to the ED for suture removal. Patient had sutures put in for a right leg laceration on 11/07/2023. Patient endorses that the wound has been healing normally with no signs of infection. Related Data Home Medications Medication Instructions Recorded Confirmed prenat.vits,alverto,vxy-[id number] 1 tab PO DAILY 06/25/19 05/08/22 Previous Rx's Medication Instructions Recorded docusate sodium 100 mg capsule 100 mg PO BID #60 caps 10/28/21 ibuprofen 600 mg tablet 600 mg PO Q6HR PRN Pain, Mild 10/28/21 (1-3) #60 tabs cyclobenzaprine 5 mg tablet 5 mg PO TID PRN muscle spasm #14 05/08/22 tabs cyclobenzaprine 10 mg tablet 10 mg PO TID PRN muscle spasm #14 02/25/23 tabs ondansetron 4 mg disintegrating 4 mg PO Q6H PRN nausea and 09/01/23 tablet vomiting #10 tabs Allergies Allergy/AdvReac Type Severity Reaction Status Date / Time No Known Drug Allergies Allergy Verified 11/14/23 09:47 Review of Systems <Cal Skinner PA-C - Last Filed: 11/14/23 11:32> Review of Systems Narrative: ROS per HPI Patient History <Cal Skinner PA-C - Last Filed: 11/14/23 11:32> Medical History Anxiety (~2015) examination following vaginal delivery (~2019) Pharyngitis Intrauterine in teenager (~2018) Depression (~2013) Eczema (~2001) H/O being hospitalized Surgical History History of removal of skin mole (~2011) Family History Grandmother Hypertension Grandfather Lung cancer Smoker Family/Other Breast cancer Brother OCD (obsessive compulsive disorder) Learning disability Mother Depression Father Depression Grandmother No problems noted. Grandfather No problems noted. Social History marital status: unmarried,living together number of children: 1 household members: family lives independently: Yes caregiver/support person: No housing: apartment pets and animals: Yes (Dogs and Cats : aware/safe. ) education level: high school occupational status: unemployed ([employer] current occupational exposures/hazards: No special nathalia needs: No other: Patient is planning on graduating and taking a gap year. seatbelt use: always do you feel safe at home: Yes Smoking Status: Current some day smoker second hand exposure: No alcohol intake: former (Rare: some on occasion before diagnosis) substance use type: marijuana (Smokes MJ for nausea: states she uses some to ease nausea symptoms : discussed/aware. ) during the past year weight has: remained stable well-balanced diet: daily or most days daily servings fruits/ve or more times/day (5-9 servings/day: lots of fruit.) caffeine: No Type(s) of exercise: walking (Dog park & lots of walks with son.) frequency: 3-4 times per week duration: 30-45 minutes/day Smoking Status: Current some day smoker tobacco type: vaping alcohol intake frequency: a few times a week Alcohol type: hard liquor Substance Use Type: marijuana Exam <Cal Skinner PA-C - Last Filed: 11/14/23 11:32> Initial Vital Signs Initial Vital Signs: Vital Signs Temperature 97.5 F L 11/14/23 09:43 Pulse Rate 80 11/14/23 09:43 Respiratory Rate 17 11/14/23 09:43 Pulse Oximetry 98 11/14/23 09:43 Oxygen Delivery Method Room Air 11/14/23 09:43 Const General: cooperative, healthy appearing, comfortable and well groomed Resp Effort & Inspection: normal respiratory effort and able to speak in complete sentences Cardio Rate: regular rate Rhythm: regular rhythm Skin Other: There is a small linear laceration to the back of the right thigh that was repaired with [address] Laceration has approximated well and healed with no signs of infection. <Brigitte Crowder MD - Last Filed: 11/15/23 18:23> Initial Vital Signs Initial Vital Signs: Vital Signs Temperature 97.5 F L 11/14/23 09:43 Pulse Rate 80 11/14/23 09:43 Respiratory Rate 17 11/14/23 09:43 Pulse Oximetry 98 11/14/23 09:43 Oxygen Delivery Method Room Air 11/14/23 09:43 Course <Cal Skinner PA-C - Last Filed: 11/14/23 11:32> Vital Signs Vital signs: Vital Signs - 8 hr 11/14/23 09:43 11/14/23 11:24 Temperature 97.5 F L 97.6 F Pulse Rate 80 64 Respiratory Rate 17 16 Blood Pressure 115/65 Pulse Oximetry 98 100 Oxygen Delivery Method Room Air Room Air <Brigitte Crowder MD - Last Filed: 11/15/23 18:23> Vital Signs Vital signs: Vital Signs - 8 hr 11/14/23 09:43 11/14/23 11:24 Temperature 97.5 F L 97.6 F Pulse Rate 80 64 Respiratory Rate 17 16 Blood Pressure 115/65 Pulse Oximetry 98 100 Oxygen Delivery Method Room Air Room Air MDM - Recheck/Abnormal Lab/Rx <Cal Skinner PA-C - Last Filed: 11/14/23 11:32> MDM Narrative Medical decision making narrative: 22-year-old female presents to the ED for suture removal. Wound appears to have healed well with no signs of infection. The 3 sutures were removed and Band-Aid applied. ED return precautions discussed with patient. Patient verbalized understanding. Medical records reviewed: Yes Discharge Plan Departure Patient Disposition: Home Clinical Impression: Encounter for removal of sutures Instructions: DI for Suture Removal Activity Restrictions/Additional Instructions: You were seen in the ED today for removal of sutures to the right leg. Your wound has healed well without any signs of infection. Sutures were removed. A Band-Aid was applied you may keep a Band-Aid on for the next few days as the wound completely heals. Return to the ED if you note any signs of infection including redness, pain, swelling, warmth, discharge. Prescriptions: No Action cyclobenzaprine 5 mg tablet 5 mg PO TID PRN (Reason: muscle spasm) Qty: 14 0RF prenat.vits,alverto,[id number] Tablet 1 tab PO DAILY cyclobenzaprine 10 mg tablet 10 mg PO TID PRN (Reason: muscle spasm) Qty: 14 0RF docusate sodium 100 mg Capsule 100 mg PO BID Qty: 60 0RF ibuprofen 600 mg Tablet 600 mg PO Q6HR PRN (Reason: Pain, Mild (1-3)) Qty: 60 1RF ondansetron 4 mg tablet,disintegrating 4 mg PO Q6H PRN (Reason: nausea and vomiting) Qty: 10 0RF Referrals: Miscellaneous,Doctor, [Primary Care Provider] - Stand Alone Forms: Patient Portal/API ED Sign-out <Brigitte Crowder MD - Last Filed: 11/15/23 18:23> Cosign ED Attending Cosignature Attestation: I was immediately available in the department for consultation throughout this patient's visit. Brigitte Crowder MD
== END 2023-11-14 11:30 | disposition home or self-care (01) ==
PROVIDERS: Emergency Provider Student in an Organized Health Care Education/Training Program
DX: S71.111D Laceration without foreign body, right thigh, subsequent encounter (principal); X58.XXXD Exposure to other specified factors, subsequent encounter; Y99.0 Civilian activity done for income or pay
CPT/HCPCS: 99281; 99282